=== PATIENT | male | born 1950 | race American Indian/Alaskan Native ===

== ENCOUNTER 2017-10-25 09:15 | Day surgery (SDC) | payer MEDICARE, OTHER ==
[~2017-10-25 09:15] MED LIST: NACL 0.9% 1000 ML 1,000 ML ONE; NACL BACTERIOSTATIC INFILTRATI ONE
[2017-10-25] MEDS ORDERED: NACL 0.9% 1000 ML 1,000 ML IV SCH (11:00)
[2017-10-25] MEDS ORDERED: DIPRIVAN 10 MG/ML IV ONE ×2 (12:15)
[2017-10-25] MEDS ORDERED: WATER FOR IRRIG STERILE IR ONE (12:27)
--- NOTE | 2017-10-25 12:33 | Anesthesia Consultation ---
Anesthesia Consult and Med Hx Date of service: 10/25/17 - Airway Anesthetic Teeth Evaluation: Poor ROM Head & Neck: Adequate Mental/Hyoid Distance: Adequate Mallampati Class: Class III Intubation Access Assessment: Possibly Difficult - Pre-Operative Health Status ASA Pre-Surgery Classification: ASA3 Proposed Anesthetic Plan: MAC - Pulmonary Hx Smoking: Yes (former smoker) Hx Sleep Apnea: Yes (snoring) - Cardiovascular System Hx Hypertension: Yes Hx Heart Attack/AMI: No (high cholesterol) - Central Nervous System Hx Back Pain: Yes - Other Systems Hx Obesity: Yes
--- NOTE | 2017-10-25 12:34 | Anesthesia Day of Surgery ---
Anesthesia Day of Surgery - Day of Surgery Patient Examined: Yes Patient H&P Reviewed: Yes Patient is NPO: Yes Beta Blockers: Yes
--- NOTE | 2017-10-25 13:09 | Operative Report ---
Operative Report Operative Report: Date of procedure: 10/25/2017 Procedure: Colonoscopy with submucosal injection and multiple snare polypectomies. Attending physician: Mauro Sheppard MD Assistant Toddler Teacher: Mauro Sheppard MD Indication: Patient is a 67-year-old male who presents for screening colonoscopy. Patient has a past history of colon polyps. The colonoscopy serves to evaluate patient for colorectal cancer screening. Consent: Informed consent was obtained after advising the patient and family regarding nature of this procedure, its indications, potential benefits as well as possible complications including but not limited to bleeding perforation and adverse reaction to medication, infection as well as other cardiopulmonary complications. An informed written and verbal consent was then obtained after due opportunity was provided for questions and answers. Monitoring: Patient was monitored continuously with pulse oximetry and electrocardiographic recordings as well as blood pressure recordings. Vital signs remained stable throughout this procedure with no untoward events. Preoperative assessment: Patient was assessed immediately prior to this procedure for capacity to tolerate monitored anesthesia care and moderate sedation as well as general anesthesia. Patient's ASA classification is 3, Mallampati class is 2, Hyomental distance is 3. Instrument: ImmuRxn video colonoscope Medications: Propofol given intravenously in divided doses. For details please refer to anesthesia records. Description of procedure: Patient was placed in the left lateral decubitus position after achieving sedation, a digital rectal examination was performed following which the colonoscope was introduced into the anal verge and advanced to the cecum which was identified by the cecal valve, the appendiceal orifice, as well as by the cecal strap and direct transillumination. The colonoscope was subsequently withdrawn with careful inspection of all mucosal surfaces. Patient tolerated this procedure well and was subsequently taken to the recovery room. The following findings were noted. Findings: Patient had extensive diverticulosis involving all segments of the colon with large wide mouth diverticula seen particularly in the cecum ascending colon descending colon and sigmoid colon. Patient had 3 flat polyps each measuring approximately 1.5 cm in the transverse colon. These were elevated with submucosal injection of saline and removed by snare electrocautery and retrieved. There was substantial retained stool seen in various segments of the colon in particular in the cecum and ascending colon where this affected visualization significantly. Also there was retained semi- formed stool in sigmoid colon. The rest of the colon to the cecum was normal. On the retroflex view at the anal verge, patient had prominent internal hemorrhoids. Impression: Multiple transverse colon polyp status post submucosal injection and snare electrocautery. Severe colonic diverticulosis. Prominent large Internal hemorrhoids. Plan: Follow pathology report High-fiber diet. Repeat colonoscopy in 1 year due to substantial retained stool and multiple colon polyps. Patient will likely benefit from hemorrhoidal band ligation in the future
--- NOTE | 2017-10-25 13:10 | Discharge Summary ---
Short Stay Discharge Plan Activity: advance as tolerated Weight Bearing Status: Weight Bear as Tolerated Diet: regular Follow up with: HERMELINDA RODRIGUEZ MD [Primary Care Provider] - 7 Days
[2017-10-25 13:36] VITALS: BP 190/88
--- NOTE | 2017-10-25 14:51 | Post Anesthesia Evaluation ---
- Post Anesthesia Evaluation Patient Participated: Yes Airway Patent: Yes Stable Respiratory Function: Yes Nausea/Vomiting: No Temp > 96.8F: Yes Pain Manageable: Yes Adequeate Hydration: Yes Anesthesia Complications: No
== END 2017-10-25 09:16 | disposition home or self-care (01) ==
LOC: GIO 09:15
PROVIDERS: ATTEND Internal Medicine Gastroenterology
DX: Z09 Encounter for follow-up examination after completed treatment for conditions other than malignant neoplasm (principal); D12.3 Benign neoplasm of transverse colon; K57.30 Diverticulosis of large intestine without perforation or abscess without bleeding; K64.8 Other hemorrhoids; I10 Essential (primary) hypertension; E78.00 Pure hypercholesterolemia, unspecified; E11.9 Type 2 diabetes mellitus without complications; Z87.891 Personal history of nicotine dependence; E66.9 Obesity, unspecified; G47.30 Sleep apnea, unspecified; Z86.010 Personal history of colon polyps; Z79.4 Long term (current) use of insulin; Z68.37 Body mass index [BMI] 37.0-37.9, adult
CPT/HCPCS: 45381; 45385; 82962; 88305; J2704; J7030